=== PATIENT | female | born 1975 | race Caucasian/White ===

== ENCOUNTER 2019-10-11 07:55 | Inpatient (IN) | payer BC ==
--- NOTE | 2019-10-11 08:51 | HP ---
Past Medical History - Primary Care Physician PCP:: Luz Matthews - Admission Chief Complaint: Decreased FM. Decreased AC < 3% History of Present Illness: 44 YO LMP 01/13/2019, EDC 10/20/2019, EGA 38.5 weeks admitted for Induction of labor due to decreased FM and AC < 3 %. History Source: Patient Limitations to Obtaining History: No Limitations - Past Medical History ...: 2 ...Para: 0 ...Term: 0 ...: 0 ...Spon : 1 ...Induced : 0 ...Living Children: 0 ...LMP: 01/13/19 ... Weeks Gestation by Dates: 38.5 ...EDC by Dates: 10/20/19 ...EDC by Sono: 10/20/19 Additional Medical History: F/O fibroid uterus - Past Surgical History Past Surgical History: Yes: None Hx Myomectomy: No Hx Transabdominal Cerclage: No - Smoking History Smoking history: Never smoked Have you smoked in the past 12 months: No - Alcohol/Substance Use Hx Alcohol Use: No History of Substance Use: reports: None - Social History Usual Living Arrangement: Yes: With Spouse Do you think of yourself as: Straight/Heterosexual History of Recent Travel: No Home Medications - Allergies Allergies/Adverse Reactions: Allergies Allergy/AdvReac Type Severity Reaction Status Date / Time No Known Allergies Allergy Verified 10/11/19 08:54 Family Medical History Family Hx Cardiac Disorders: Father Review of Systems - Review of Systems Constitutional: reports: No Symptoms Eyes: reports: No Symptoms HENT: reports: No Symptoms Neck: reports: No Symptoms Cardiovascular: reports: No Symptoms Respiratory: reports: No Symptoms Gastrointestinal: reports: No Symptoms Genitourinary: reports: No Symptoms Breasts: reports: No Symptoms Reported Musculoskeletal: reports: No Symptoms Integumentary: reports: No Symptoms Neurological: reports: No Symptoms Endocrine: reports: No Symptoms Hematology/Lymphatic: reports: No Symptoms Psychiatric: reports: No Symptoms Physical Exam - Maternity Constitutional: Yes: Well Nourished, No Distress Eyes: Yes: WNL HENT: Yes: WNL Neck: Yes: WNL Cardiovascular: Yes: WNL Lungs: Clear to auscultation Breast(s): Yes: WNL - Abdominal Exam/OB Fundal Height: 36 Number of Fetuses: Single Presentation: Vertex Contractions: Yes Regularity: Irregular Intensity: Mild Monitor Mode: External Heart Rate (range): 130 Heart Rate Location: RUST Category: I Accelerations: Uniform Decelerations: None - Vaginal Exam/OB Vaginal Bleeding: No Dilatation (cm): 3 Effacement (%): 70 Amniotic Membrane Status: Intact Presentation: Vertex/Position Station: -1 - Physical Exam Musculoskeletal: Yes: WNL Extremities: Yes: WNL Edema: No Deep Tendon Reflex Grade: Normal +2 ...Motor Strength: WNL Psychiatric: Yes: WNL Hemorrhage Risk Assessment - Risk Factors Medium Risk Factors: Yes: Large myomas Risk Score: 1 Risk Level: Medium Risk Problem List - Problems (1) AMA (advanced maternal age) multigravida 35+ Code(s): O09.529 - SUPERVISION OF ELDERLY MULTIGRAVIDA, UNSPECIFIED TRIMESTER (2) Uterine fibroid during , antepartum Code(s): O34.10 - MATERNAL CARE FOR BENIGN TUMOR OF CORPUS UTERI, UNSP TRI; D25.9 - LEIOMYOMA OF UTERUS, UNSPECIFIED (3) with 38 completed weeks gestation Code(s): Z3A.38 - 38 WEEKS GESTATION OF (4) SGA (small for gestational age), , affecting care of mother, antepartum Code(s): O36.5990 - MATERN CARE FOR OTH OR SUSP POOR FETL GRTH, UNSP TRI, UNSP Assessment/Plan Admit to LD Induction of labor
[2019-10-11] MEDS ORDERED: ELECTROLYTE-148 SOLN 1,000 ML IV SCH (09:00)
[2019-10-11] MEDS ORDERED: OXYTOCIN 30 UNITS in 0.9% NS 30 UNIT/500 ML INFUS.BAG IVPB SCH (09:15)
[2019-10-11 09:47] VITALS: BMI 21.9
[2019-10-11] MEDS ORDERED: OXYTOCIN 30 UNITS in 0.9% NS 30 UNIT/500 ML INFUS.BAG IVPB ONE (10:03)
[2019-10-11 10:31] LABS: BLOOD UREA NITROGEN 6.9 mg/dL (7-18); CALCIUM 8.1 mg/dL (8.5-10.1); CREATININE 0.5 mg/dL (0.55-1.3); POTASSIUM 5.7 mmol/L (3.5-5.1)
[2019-10-11 10:53] LABS: BASO % 0.3 % (0-2.0); EOS % 0.2 % (0-4.5); HEMATOCRIT 36.9 % (32.4-45.2); HEMOGLOBIN 12.3 GM/dL (10.7-15.3); LYMPH % 19.4 % (8-40); MCH 29.6 pg (25.7-33.7); MCHC 33.3 g/dl (32.0-36.0); MEAN CELL VOLUME 89.1 fl (80-96); MEAN PLT VOLUME 9.2 fl (7.5-11.1); NEUT % 70.1 % (42.8-82.8); PLATELET COUNT 185 K/MM3 (134-434); RBC 4.15 M/mm3 (3.60-5.2); RDW 13.6 % (11.6-15.6); WHITE BLOOD COUNT 7.7 K/mm3 (4.0-10.0)
[2019-10-11 12:12] LABS: INR 0.91 (0.83-1.09); PROTHROMBIN TIME (PATIENT) 10.7 SEC (9.7-13.0)
[2019-10-11 12:14] LABS: ACTIVATED PTT 28.7 SECONDS (25.2-36.5)
--- NOTE | 2019-10-11 15:20 | PN ---
Progress Note (short form) - Note Progress Note: 44 yo @ 38.5 weeks admitted for Induction of labor VSS, afebrile Pt c/o mild UC EFM baseline 140 bpm, reacrive, cat 1 TOCO UC q 3-4 min VE - 3-4 cm, 70%, -1 vtx, AROM - scanty, clear AF A/P Continue pitocin Augmentation Problem List - Problems (1) AMA (advanced maternal age) multigravida 35+ Code(s): O09.529 - SUPERVISION OF ELDERLY MULTIGRAVIDA, UNSPECIFIED TRIMESTER (2) Uterine fibroid during , antepartum Code(s): O34.10 - MATERNAL CARE FOR BENIGN TUMOR OF CORPUS UTERI, UNSP TRI; D25.9 - LEIOMYOMA OF UTERUS, UNSPECIFIED (3) with 38 completed weeks gestation Code(s): Z3A.38 - 38 WEEKS GESTATION OF (4) SGA (small for gestational age), , affecting care of mother, antepartum Code(s): O36.5990 - MATERN CARE FOR OTH OR SUSP POOR FETL GRTH, UNSP TRI, UNSP
[2019-10-11] MEDS ORDERED: FENTANYL/BUPIVACAINE/NS/PF - PCEA - 50 ML DISP.SYRIN EP ONE (15:57)
[2019-10-11] MEDS ORDERED: PCA PUMP NR ONE (15:57)
[2019-10-11] MEDS ORDERED: BUPIVACAINE HCL/PF 0.25% (2.5MG/ML) 10 ML VIAL ONE (16:35)
[2019-10-11] MEDS ORDERED: SODIUM BICARBONATE 8.4% 50 MEQ/50 ML VIAL ONE (17:20)
[2019-10-11] MEDS ORDERED: LIDO 2%/EPI 1:200000 PRESRVFRE (20 ML SDVIAL) ONE (17:22)
[2019-10-11] MEDS ORDERED: OXYTOCIN 10 UNITS/ML VIAL ONE (17:27)
[2019-10-11] MEDS ORDERED: morphine SULFATE/PF 0.5 MG/ML (2cc Syringe - QUVA) ONE ×3 (17:32)
[2019-10-11] MEDS ORDERED: CLINDAMYCIN PHOSPHATE 600 MG/4 ML VIAL ONE (17:50)
[2019-10-11] MEDS ORDERED: ceFAZolin SODIUM 1 GM VIAL ONE (17:52)
[2019-10-11] MEDS ORDERED: KETAMINE HCL 500 MG/10 ML VIAL ONE (18:01)
--- NOTE | 2019-10-11 18:05 | PN ---
Progress Note (short form) - Note Progress Note: I assisted Dr. Matthews at the crash c/section for the entirety of the case.
[2019-10-11 18:18] LABS: CORD HCO3 19.2 mmHg (20-29); CORD PCO2 94.4 mmHg (30-78)
[2019-10-11 18:19] LABS: CORD HCO3 17.8 mmHg (20-29); CORD PCO2 50.3 mmHg (30-78); CORD pH 7.167 (7.14-7.44)
[2019-10-11] MEDS ORDERED: ONDANSETRON 4 MG/2 ML VIAL IVPUSH PRN (18:21)
[2019-10-11 18:25] LABS: CORD pH 6.927 (7.14-7.44)
--- NOTE | 2019-10-11 18:46 | PN ---
Progress Note (short form) - Note Progress Note: 44 yo @ 38.5 weeks admitted for Induction of labor VSS, afebrile Pt requested epidural anesthesia EFM baseline 140 bpm, reactive, cat 1 TOCO UC q 2-3 min VE - 3-4 cm, 70%, -1 vtx, AROM - scanty, clear AF Called by the nurse to find the FHB VE - 9 cm, +1 vtx, IFM apply Baseline 50-60 bpm Scalp stimulation - no immediate response; decision for emergency cs made; pt verbalized understanding and transfer to OR for emergency CS. Problem List - Problems (1) AMA (advanced maternal age) multigravida 35+ Code(s): O09.529 - SUPERVISION OF ELDERLY MULTIGRAVIDA, UNSPECIFIED TRIMESTER (2) Uterine fibroid during , antepartum Code(s): O34.10 - MATERNAL CARE FOR BENIGN TUMOR OF CORPUS UTERI, UNSP TRI; D25.9 - LEIOMYOMA OF UTERUS, UNSPECIFIED (3) with 38 completed weeks gestation Code(s): Z3A.38 - 38 WEEKS GESTATION OF (4) SGA (small for gestational age), , affecting care of mother, antepartum Code(s): O36.5990 - MATERN CARE FOR OTH OR SUSP POOR FETL GRTH, UNSP TRI, UNSP
--- NOTE | 2019-10-11 18:51 | OP ---
Operative Note - Note: Operative Date: 10/11/19 Pre-Operative Diagnosis: 44 yo @ 38.5 wks SGA Fibroid uterus Cat 2 tracing remote from delivery. AMA Operation: Primary LTCS via Pfannenstiel Incision Findings: Baby girl born 49 Cord gases and blood collected Placenta and membranes complete - send to pathology Due to urgency there was no instruments, laps, or needles count; Xray at the end of procedure - wnl Post-Operative Diagnosis: Same as Pre-op Surgeon: Luz Matthews Skein Yarn Dyer: Elias Kong Anesthesiologist/MARKETING PROJECT SPECIALIST: Humera Moyer Anesthesia: Epidural Specimens Removed: Cord gases and blood. Placenta and membranes Estimated Blood Loss (mls): 800 Drains, Volume Out (mls): 100 Fluid Volume Replaced (mls): 1,200 Operative Report Dictated: No
[2019-10-11] MEDS ORDERED: METHYLERGONOVINE MALEATE 0.2 MG/1 ML AMP IM PRN (18:53)
[2019-10-11] MEDS ORDERED: OXYTOCIN 20 UNITS in 0.9% NS 20 UNIT/1,000 ML INFUS.BAG IV ONE (19:35)
[2019-10-12] MEDS: CEFAZOLIN 1 GM/D5W 1 GM/50 ML BAG IVPB SCH ×2 (02:00→09:27)
[2019-10-12] MEDS ORDERED: CEFAZOLIN 1 GM in DEXTROSE 5%-WATER - 50 ML IVPB SCH (02:00)
[2019-10-12 08:14] LABS: BASO % 0.2 % (0-2.0); EOS % 0.1 % (0-4.5); HEMATOCRIT 34.6 % (32.4-45.2); HEMOGLOBIN 11.4 GM/dL (10.7-15.3); LYMPH % 7.7 % (8-40); MCH 29.2 pg (25.7-33.7); MCHC 32.9 g/dl (32.0-36.0); MEAN CELL VOLUME 88.7 fl (80-96); MEAN PLT VOLUME 9.3 fl (7.5-11.1); MONO % 9.4 % (3.8-10.2); NEUT % 82.6 % (42.8-82.8); PLATELET COUNT 174 K/MM3 (134-434); RDW 13.8 % (11.6-15.6); WHITE BLOOD COUNT 15.7 K/mm3 (4.0-10.0)
--- NOTE | 2019-10-12 10:02 | PN ---
Progress Note (short form) - Note Progress Note: s/p stat C/S with epidural and duramorph. Doing well, pain tolerable, has not used oral Rx yet, encouraged use for ambulation. All questions answered.
--- NOTE | 2019-10-12 11:04 | PN ---
Post Progress Note Type of Delivery: Primary C/S Vital Signs: Vital Signs Temperature 98.1 F 10/12/19 06:00 Pulse Rate 97 H 10/12/19 06:00 Respiratory Rate 20 10/12/19 06:00 Blood Pressure 128/85 10/12/19 06:00 O2 Sat by Pulse Oximetry (%) 97 10/11/19 19:15 Breast Exam: Yes: Soft Uterus: Yes: Fundus Firm, Fundus above umbilicus, Non-tender Incision: Yes: Dressing dry and intact Abdomen/GI: Yes: Abdomen soft Lochia: Yes: Rubra Lochia, amount: Small Extremities: Yes: Calves non-tender Activity: Ambulating - Labs Labs: CBC WBC 15.7 K/mm3 (4.0-10.0) H 10/12/19 07:26 RBC 3.90 M/mm3 (3.60-5.2) 10/12/19 07:26 Hgb 11.4 GM/dL (10.7-15.3) 10/12/19 07:26 Hct 34.6 % (32.4-45.2) 10/12/19 07:26 MCV 88.7 fl (80-96) 10/12/19 07:26 MCH 29.2 pg (25.7-33.7) 10/12/19 07:26 MCHC 32.9 g/dl (32.0-36.0) 10/12/19 07:26 RDW 13.8 % (11.6-15.6) 10/12/19 07:26 Plt Count 174 K/MM3 (134-434) 10/12/19 07:26 MPV 9.3 fl (7.5-11.1) 10/12/19 07:26 Absolute Neuts (auto) 12.9 K/mm3 (1.5-8.0) H 10/12/19 07:26 Neutrophils % 82.6 % (42.8-82.8) 10/12/19 07:26 Lymphocytes % 7.7 % (8-40) L D 10/12/19 07:26 Monocytes % 9.4 % (3.8-10.2) 10/12/19 07:26 Eosinophils % 0.1 % (0-4.5) 10/12/19 07:26 Basophils % 0.2 % (0-2.0) 10/12/19 07:26 Nucleated RBC % 0 % (0-0) 10/12/19 07:26 Problem List - Problems (1) AMA (advanced maternal age) multigravida 35+ Code(s): O09.529 - SUPERVISION OF ELDERLY MULTIGRAVIDA, UNSPECIFIED TRIMESTER (2) Uterine fibroid during , antepartum Code(s): O34.10 - MATERNAL CARE FOR BENIGN TUMOR OF CORPUS UTERI, UNSP TRI; D25.9 - LEIOMYOMA OF UTERUS, UNSPECIFIED (3) with 38 completed weeks gestation Code(s): Z3A.38 - 38 WEEKS GESTATION OF (4) SGA (small for gestational age), , affecting care of mother, antepartum Code(s): O36.5990 - MATERN CARE FOR OTH OR SUSP POOR FETL GRTH, UNSP TRI, UNSP Assessment/Plan Ambulate
[2019-10-12] MEDS: SIMETHICONE 80 MG TAB.CHEW (FP) PO PRN ×2 (11:23→19:29)
[2019-10-12] MEDS: IBUPROFEN 600 MG TABLET (FP) PO PRN ×2 (11:23→19:29)
[2019-10-12] MEDS ORDERED: BISACODYL 10 MG SUPP.RECT RC PRN (18:54)
[2019-10-12] MEDS: ACETAMINOPHEN 325 MG TABLET (FP) PO PRN (19:31)
[2019-10-13] MEDS: ACETAMINOPHEN 325 MG TABLET (FP) PO PRN ×2 (13:15→23:41)
[2019-10-13] MEDS: SIMETHICONE 80 MG TAB.CHEW (FP) PO PRN (13:15)
[2019-10-13] MEDS: IBUPROFEN 600 MG TABLET (FP) PO PRN ×2 (13:16→23:41)
--- NOTE | 2019-10-13 19:20 | PN ---
Post Progress Note - Subjective Subjective: Happy, no c/o + flatus Type of Delivery: Primary C/S Vital Signs: Vital Signs Temperature 98.0 F 10/13/19 10:00 Pulse Rate 80 10/13/19 10:00 Respiratory Rate 18 10/13/19 10:00 Blood Pressure 118/70 10/13/19 10:00 O2 Sat by Pulse Oximetry (%) 97 10/11/19 19:15 Breast Exam: Yes: Soft Uterus: Yes: Fundus Firm, Fundus above umbilicus Incision: Yes: Stark intact Abdomen/GI: Yes: Abdomen soft, Tender Lochia: Yes: Rubra Lochia, amount: Small Extremities: Yes: Calves non-tender Activity: Ambulating - Labs Labs: CBC WBC 15.7 K/mm3 (4.0-10.0) H 10/12/19 07:26 RBC 3.90 M/mm3 (3.60-5.2) 10/12/19 07:26 Hgb 11.4 GM/dL (10.7-15.3) 10/12/19 07:26 Hct 34.6 % (32.4-45.2) 10/12/19 07:26 MCV 88.7 fl (80-96) 10/12/19 07:26 MCH 29.2 pg (25.7-33.7) 10/12/19 07:26 MCHC 32.9 g/dl (32.0-36.0) 10/12/19 07:26 RDW 13.8 % (11.6-15.6) 10/12/19 07:26 Plt Count 174 K/MM3 (134-434) 10/12/19 07:26 MPV 9.3 fl (7.5-11.1) 10/12/19 07:26 Absolute Neuts (auto) 12.9 K/mm3 (1.5-8.0) H 10/12/19 07:26 Neutrophils % 82.6 % (42.8-82.8) 10/12/19 07:26 Lymphocytes % 7.7 % (8-40) L D 10/12/19 07:26 Monocytes % 9.4 % (3.8-10.2) 10/12/19 07:26 Eosinophils % 0.1 % (0-4.5) 10/12/19 07:26 Basophils % 0.2 % (0-2.0) 10/12/19 07:26 Nucleated RBC % 0 % (0-0) 10/12/19 07:26 Problem List - Problems (1) AMA (advanced maternal age) multigravida 35+ Code(s): O09.529 - SUPERVISION OF ELDERLY MULTIGRAVIDA, UNSPECIFIED TRIMESTER (2) Uterine fibroid during , antepartum Code(s): O34.10 - MATERNAL CARE FOR BENIGN TUMOR OF CORPUS UTERI, UNSP TRI; D25.9 - LEIOMYOMA OF UTERUS, UNSPECIFIED (3) with 38 completed weeks gestation Code(s): Z3A.38 - 38 WEEKS GESTATION OF (4) SGA (small for gestational age), , affecting care of mother, antepartum Code(s): O36.5990 - MATERN CARE FOR OTH OR SUSP POOR FETL GRTH, UNSP TRI, UNSP Assessment/Plan Ambulate Milk of magnesium x 1
[2019-10-13] MEDS ORDERED: MAGNESIUM HYDROXIDE 400 MG/5 ML SUSPENSION PO ONE (22:15)
[2019-10-13] MEDS ORDERED: MAGNESIUM HYDROX 2400MG/30ML ORAL SUSPENSION 30 ML CUP PO ONE (22:30)
[2019-10-14] MEDS: ACETAMINOPHEN 325 MG TABLET (FP) PO PRN (09:17)
[2019-10-14] MEDS: IBUPROFEN 600 MG TABLET (FP) PO PRN (09:18)
[2019-10-14] MEDS: SIMETHICONE 80 MG TAB.CHEW (FP) PO PRN (09:18)
[2019-10-14 09:22] LABS: BASO % 0.7 % (0-2.0); EOS % 1.4 % (0-4.5); HEMATOCRIT 33.3 % (32.4-45.2); HEMOGLOBIN 10.8 GM/dL (10.7-15.3); LYMPH % 22.9 % (8-40); MCH 28.8 pg (25.7-33.7); MCHC 32.5 g/dl (32.0-36.0); MEAN CELL VOLUME 88.6 fl (80-96); MEAN PLT VOLUME 8.8 fl (7.5-11.1); MONO % 9.4 % (3.8-10.2); NEUT % 65.6 % (42.8-82.8); PLATELET COUNT 167 K/MM3 (134-434); RBC 3.75 M/mm3 (3.60-5.2); RDW 13.6 % (11.6-15.6); WHITE BLOOD COUNT 6.6 K/mm3 (4.0-10.0)
--- NOTE | 2019-10-14 11:28 | DS ---
Physical Exam-GROUND NUCLEAR WEAPONS ASSEMBLY OFFICER Vital Signs: Vital Signs Temperature 98.0 F 10/13/19 22:00 Pulse Rate 83 10/13/19 22:00 Respiratory Rate 18 10/13/19 22:00 Blood Pressure 130/89 10/13/19 22:00 O2 Sat by Pulse Oximetry (%) 97 10/11/19 19:15 Constitutional: Yes: Well Nourished, No Distress Eyes: Yes: WNL HENT: Yes: WNL Neck: Yes: WNL Cardiovascular: Yes: WNL Respiratory: Yes: WNL Gastrointestinal: Yes: WNL ...Rectal Exam: Yes: Deferred Renal/: Yes: WNL ....Post : Yes: Uterus firm, Uterus non-tender Breast(s): Yes: WNL Musculoskeletal: Yes: WNL Extremities: Yes: WNL Edema: No Labs: CBC, BMP 10/14/19 08:38 10/11/19 09:27 Delivery - Delivery Section: Primary, Low Flap Transverse Type of Anesthesia: Epidural Episiotomy/Laceration: None EBL (cc): 800 Delivery, Single - Stages of Labor Date 1st Stage Initiatied: 10/11/19 Time 1st Stage Initiated: 15:25 Date of Delivery: 10/11/19 Time of Delivery: 17:29 Time Placenta Delivered: 17:30 Placenta: Yes: Spontaneous - Condition of Director Talent/Inspection Engineer Present: No Infant Gender: Female Weight: 2.665 kg Position: OA Total Hours ROM (Hrs/Mins): 2h20m - 1 Minute Total Score: 4 5 Minutes Total Score: 8 10 Minutes Total Score: 9 - [place] Feeding Plan Initial Plan: Elected not to breastfeed exclusively throughout hospitalization Discharge Summary Problems reviewed: Yes Reason For Visit: INDUCTION OF LABOR Current Active Problems AMA (advanced maternal age) multigravida 35+ (Acute) with 38 completed weeks gestation (Acute) SGA (small for gestational age), , affecting care of mother, antepartum (Acute) Uterine fibroid during , antepartum (Acute) Emergency cesarian section due to cat 2 tracing remote from delivery Procedures: Principal: Cesarian Delivery Hospital Course: Good, afebrile Plan of Treatment: D/C home today F/u in the office in 1 wk for staple removal Condition: Good - Instructions Diet, Activity, Other Instructions: Regular Activity as tolerated - Home Medications Comprehensive Discharge Medication List: Ambulatory Orders Prenat 115/Iron Fum/Folic/Dss [ 19 Tablet] 1 each PO DAILY 10/11/19
[2019-10-14 12:55] VITALS: BP 136/89; PULSE 74; TEMP 97.6
--- NOTE | 2019-10-14 22:03 | OP ---
DATE OF OPERATION: 10/11/2019 PREOPERATIVE DIAGNOSES: A 44-year-old, 2, para 0-0-1-0 at 38.5 weeks, small for gestational age, fibroid uterus, category 2 tracing, remote from delivery, advanced maternal age. POSTOPERATIVE DIAGNOSES: A 44-year-old, 2, para 0-0-1-0 at 38.5 weeks, small for gestational age, fibroid uterus, category 2 tracing, remote from delivery, advanced maternal age. SURGERY/PROCEDURE: Primary section via Pfannenstiel incision. FINDINGS: Baby girl born, Apgars 4, 8, and 9. Cord gases and blood collected. Placenta and membrane complete, sent to Pathology. Uterus: Multiple large fibroids. Ovaries and tubes within normal limits. Due to the urgency, there was no instrument, laps, and needle count. X-ray performed at the end of the procedure within normal limits. SURGEON: Lydia Magana MD DAIRY INSPECTOR: Elias Kong MD ANESTHESIOLOGIST: CIRILO Green ANESTHESIA: Epidural. SPECIMEN: Cord gases and blood, placenta and membranes. ESTIMATED BLOOD LOSS: 800 mL. URINE OUTPUT: At the end of the procedure 100 mL. FLUID: Ringer lactate 1200 mL. DESCRIPTION OF PROCEDURE: The patient was taken to the operating room where epidural anesthesia was found to be adequate. She was then prepped and draped as emergency. The instrument and laps and needles were not counted. A Pfannenstiel skin incision was made with a scalpel and carried through to the underlying layer of fascia with the Bovie. The fascia was incised in the midline. The incision was extended laterally with Caal scissors. The rectus muscles visualized and dissected off bluntly. The rectus muscles were then in the midline. Peritoneum identified, entered sharply with Metzenbaum scissors. The peritoneal incision was extended superiorly and inferiorly with good visualization of the bladder. The bladder blade was inserted. Vesicouterine peritoneum identified, grasped with pickups, and entered sharply with Metzenbaum scissors. The incision was extended laterally and bladder flap created digitally. The bladder blade was reinserted. The lower uterine segment incised in transverse fashion with a scalpel. The uterine incision was then extended laterally with bandage scissors. Bladder blade was removed and the infant's head delivered atraumatically. The nose and mouth were suctioned and the cord clamped and cut. The was handed off to the pediatric team. Cord gases and blood were collected. The placenta was then removed manually. The uterus exteriorized and cleared of all clots and debris. Uterine incision was repaired with 1-0 chromic in a running, locked fashion. Second layer of the same suture was used to obtain hemostasis. The bladder flap was repaired with 2-0 chromic in a running stitch and the uterus returned to the abdomen. The gutters were cleared of all clots and the peritoneum closed with 2-0 chromic. The fascia was reapproximated with 0 Vicryl in a running fashion, and the skin was closed with ginger. The patient tolerated the procedure well. Sponge, lap, and needle counts were correct x2. Due to the urgency, there were no counts in the beginning of the procedure. X-ray at the end of the procedure within normal limits, negative. The patient was taken to the recovery room in stable condition. LYDIA MAGANA MD [id number]
--- NOTE | 2019-10-16 17:51 | PATH ---
Surgical Pathology Report Patient Name: BERNARD GARCIA Med. Rec. #: [id number] /Age/Gender: 1975 (Age: 44) / F Account: [id number] Location: [facility] OBS/DEPOT MANAGER Taken: 10/11/2019 Received: 10/12/2019 Reported: 10/16/2019 Physicians: Luz Matthews M.D. Specimen(s) Received PLACENTA Clinical History at 38.5 weeks primary for nonreassuring heart rate Final Diagnosis PLACENTA: THIRD TRIMESTER PLACENTA. TRIVASCULAR CORD. MEMBRANES WITH NO DIAGNOSTIC ABNORMALITIES. Electronically Signed Gwen Ahmadi M.D. Gross Description The specimen is received fresh labeled placenta and is a 331 gram, 16.5 x 15.5 x 2.0 cm. placenta with attached membranes and umbilical cord. The attached membranes are han, translucent with focal opacities and insert marginally. The umbilical cord measures 9.5 cm. in length and averages 1 cm. in diameter. The cord inserts eccentrically, 3 cm. to the nearest margin. No true knots or strictures are identified. Cut surface of the umbilical cord reveals 3 vessels. The surface is freeman-blue with minimal fibrin deposition and appropriate caliber vessels. The maternal surface is red-brown with focal defects. Sectioning reveals red-brown, spongy parenchyma. No lesions are identified. [place] Player sections are submitted in three cassettes as follows: 1- membrane rolls and umbilical cord; 2-3- full thickness sections of placenta. /10/12/2019 saudi/10/12/2019
== END 2019-10-14 14:55 | disposition home or self-care (01) | DRG 788 ==
LOC: JLDR 07:55 → J3W 21:00
PROVIDERS: ADMIT Obstetrics & Gynecology; ATTEND Obstetrics & Gynecology
PROC: 10D00Z1 Extraction of Products of Conception, Low, Open Approach (ICD-10-PCS; principal; 2019-10-11)
DX: O76 Abnormality in fetal heart rate and rhythm complicating labor and delivery (principal); Z3A.38 38 weeks gestation of pregnancy; Z37.0 Single live birth; O36.5931 Maternal care for other known or suspected poor fetal growth, third trimester, fetus 1; O34.13 Maternal care for benign tumor of corpus uteri, third trimester; O65.5 Obstructed labor due to abnormality of maternal pelvic organs
CPT/HCPCS: 36415; 36600; 74190-TC-FY; 80048; 82803; 85025; 85610; 85730; 86780; 86850; 86900; 86901; 87389; 88307-TC; U0003